=== PATIENT | female | born 1950 | race African-American/Black ===

== ENCOUNTER 2016-11-07 18:40 | Emergency (ER) | payer MEDICARE, MEDICAID ==
[~2016-11-07] VITALS: Ht 162.6 cm; Wt 98.6 kg
[~2016-11-07 18:40] MED LIST: MULT1CAP32 PO
[2016-11-07] MEDS ORDERED: ARTHRITIS PO (18:54)
[2016-11-07] MEDS ORDERED: BACITRACIN 0.9 GM PACKET OINTMENT TP ONE (20:45)
[2016-11-07] MEDS ORDERED: IBUPROFEN 600 MG TABLET PO ONE (20:45)
[2016-11-07 20:48] VITALS: BP 138/71
== END 2016-11-07 20:49 | disposition home or self-care (01) ==
LOC: EMS 18:47
DX: S46.812A Strain of other muscles, fascia and tendons at shoulder and upper arm level, left arm, initial encounter (principal); S00.83XA Contusion of other part of head, initial encounter; S00.03XA Contusion of scalp, initial encounter; S10.93XA Contusion of unspecified part of neck, initial encounter; S60.511A Abrasion of right hand, initial encounter; Z87.891 Personal history of nicotine dependence; W19.XXXA Unspecified fall, initial encounter; Y93.89 Activity, other specified; Y92.89 Other specified places as the place of occurrence of the external cause; Y99.8 Other external cause status
CPT/HCPCS: 99283

== ENCOUNTER 2018-01-13 16:13 | Emergency (ER) | payer MEDICARE, MEDICAID ==
[~2018-01-13] VITALS: Ht 162.6 cm; Wt 118.2 kg
[~2018-01-13 16:13] MED LIST changes: +ARTHRITIS PO
[2018-01-13 16:19] VITALS: BP 125/59
[2018-01-13] MEDS ORDERED: PredniSONE 20 MG TABLET PO ONE (19:15)
[2018-01-13] MEDS ORDERED: DiphenhydrAMINE HCL 25 MG CAPSULE PO ONE (19:15)
== END 2018-01-13 19:40 | disposition home or self-care (01) ==
LOC: EMS 16:14
DX: S20.369A Insect bite (nonvenomous) of unspecified front wall of thorax, initial encounter (principal); F20.9 Schizophrenia, unspecified; F32.9 Major depressive disorder, single episode, unspecified; W57.XXXA Bitten or stung by nonvenomous insect and other nonvenomous arthropods, initial encounter; Y93.89 Activity, other specified; Y92.89 Other specified places as the place of occurrence of the external cause; Y99.8 Other external cause status; Z87.891 Personal history of nicotine dependence
CPT/HCPCS: 99283; J7512

== ENCOUNTER 2024-01-10 10:20 | Emergency (ER) | payer MEDICARE, MEDICAID ==
[~2024-01-10] VITALS: Ht 160 cm; Wt 96.8 kg
[2024-01-10 10:32] VITALS: BP 131/69; PULSE 62; RESP 14; TEMP 98.3
[2024-01-10 11:14] LABS: COVID AG,FIA SOURCE NASAL SWAB
[2024-01-10 11:47] LABS: SARS-COV2 (COVID) ANTIGEN,FIA Negative (Negative)
== END 2024-01-10 12:21 | disposition home or self-care (01) ==
LOC: EMS 10:20
DX: Z11.52 Encounter for screening for COVID-19 (principal); R05.9 Cough, unspecified; R09.89 Other specified symptoms and signs involving the circulatory and respiratory systems; Z20.822 Contact with and (suspected) exposure to COVID-19
CPT/HCPCS: 99283

== ENCOUNTER 2024-03-25 14:18 | Emergency (ER) | payer MEDICARE, MEDICAID | END 2024-03-25 18:36 | disposition left against medical advice (07) | LOC: EMS 14:18 | DX: S51.852A Open bite of left forearm, initial encounter (principal); Z53.21 Procedure and treatment not carried out due to patient leaving prior to being seen by health care provider; W54.0XXA Bitten by dog, initial encounter; Y93.89 Activity, other specified; Y92.89 Other specified places as the place of occurrence of the external cause; Y99.8 Other external cause status ==